=== PATIENT | male | born 2000 | race Caucasian/White ===

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

== ENCOUNTER 2025-06-08 20:14 | Emergency (ER) | payer OTHER ==
[~2025-06-08] VITALS: Ht 177.8 cm; Wt 82.6 kg
[2025-06-08] MEDS ORDERED: NAPROSYN500 MG PO (21:05)
[2025-06-08] MEDS ORDERED: Bacitracin Zinc 14 GM TUBE T ONE (21:10)
== END 2025-06-08 21:22 ==
LOC: ED 20:14
DX: S11.91XA Laceration without foreign body of unspecified part of neck, initial encounter (principal); S20.211A Contusion of right front wall of thorax, initial encounter; S80.02XA Contusion of left knee, initial encounter; S60.221A Contusion of right hand, initial encounter; V03.90XA Pedestrian on foot injured in collision with car, pick-up truck or van, unspecified whether traffic or nontraffic accident, initial encounter; Y93.01 Activity, walking, marching and hiking; Y92.488 Other paved roadways as the place of occurrence of the external cause; Y99.8 Other external cause status

== ENCOUNTER 2025-07-05 19:12 | Emergency (ER) | payer OTHER ==
[~2025-07-05] VITALS: Ht 177.8 cm; Wt 88.0 kg
[~2025-07-05 19:12] MED LIST changes: +NAPROSYN500 MG PO
[2025-07-05 19:26] VITALS: BP 129/78
== END 2025-07-05 23:55 ==
LOC: ED 19:12
DX: S02.2XXA Fracture of nasal bones, initial encounter for closed fracture (principal); S00.83XA Contusion of other part of head, initial encounter; Y04.0XXA Assault by unarmed brawl or fight, initial encounter; Y93.89 Activity, other specified; Y92.89 Other specified places as the place of occurrence of the external cause; Y99.8 Other external cause status